=== PATIENT | male | born 1960 | race Caucasian/White ===

== ENCOUNTER 2018-01-11 15:57 | Observation (INO) ==
--- NOTE | 2018-01-11 21:30 | P.CON ---
History of Present Illness Service: Hand Surgery Consult date: 01/11/18 Reason for Consult: right thumb laceration Chief Complaint: right thumb laceration History of Present Illness: Patient is a 57 year old left hand dominant male presenting with complaints of laceration to the right thumb around 3 pm today. patient was using a boxing instructor and accidentally lacerated the right thumb. complains of inability to extend the thumb since injury. complains of pain over the region. denies any numbness. patient was seen at [facility], [place] and transferred to [facility] for surgery. Review of Systems All other systems reviewed negative except as stated in [facility] - History History Provided By: Patient - Medical History Medical History: Medical History (Last Reviewed 01/11/18 @ 21:24 by Ashish Covarrubias MD) Diabetes Hypercholesteremia Hypertension - Surgical History Surgical History: Surgical History (Last Reviewed 01/11/18 @ 21:24 by Ashish Covarrubias MD) History of heart artery stent History of kidney surgery - Tobacco History Second Hand Smoke Exposure: No Smoking Status: Never smoker - Alcohol History How Often Do You Have a Drink Containing Alcohol: Monthly or less - Substance Use History Substance History: No History of Abuse Medications and Allergies Allergies Allergy/AdvReac Type Severity Reaction Status Date / Time No Known Allergies Allergy Verified 01/11/18 16:13 Home Medications Medication Instructions Recorded Confirmed Type aspirin 81 mg PO DAILY 01/11/18 01/11/18 History atorvastatin 01/11/18 01/11/18 History clopidogrel [Plavix] 01/11/18 History lisinopril 20 mg PO DAILY 01/11/18 01/11/18 History metformin 1,000 mg PO BID 01/11/18 01/11/18 History Physical Exam Narrative: Examination of the right thumb: sutured laceration measuring about 2 cms over the dorsal aspect of the thumb proximal phalanx region drooping at the thumb IP joint noted no active extension of the IP joint noted intact flexion intact distal sensation and circulation - Constitutional no acute distress - Routine HEENT Exam Head: Present: normocephalic, atraumatic - Routine Respiratory Exam Comments: clear, equal on both sides - Routine Cardiovascular Exam Comments: S1 S2 normal, no murmurs Results - Imaging X-rays of the right thumb: soft tissue defect. no fractures. Assessment and Plan - Assessment (1) Laceration of extensor muscle, fascia and tendon of right thumb at wrist and hand level, initial encounter Code(s): S66.221A - Laceration of extensor muscle, fascia and tendon of right thumb at wrist and hand level, initial encounter Status: Acute - Plan 57 year old male with laceration extensor tendon zone II/III right thumb Plan: Take the patient emergently for exploration and repair of the extensor tendon right thumb. keep the patient npo. patient has been explained the risks and benefits of the procedure.
[2018-01-11] MEDS ORDERED: Sugammadex Inj 200 MG/2 ML Vial IV.PUSH ONE (21:52)
[2018-01-11] MEDS ORDERED: Lidocaine PF 1% Inj 5 ML Syringe OTHER ONE (22:00)
[2018-01-11] MEDS ORDERED: Neomycin/Polymyxin G.U. Irrigant 1 ML Ampul ONE (22:13)
[2018-01-11] MEDS ORDERED: Lidocaine 2% Inj 50 ML Vial ONE (22:14)
[2018-01-11] MEDS ORDERED: Bupivacaine PF 0.5% Inj 30 ML Vial ONE (22:14)
[2018-01-11] MEDS ORDERED: fentaNYL Citrate Inj 100 MCG/2 ML Ampul ONE (23:49)
--- NOTE | 2018-01-12 00:06 | P.OP ---
- Preoperative Diagnosis (1) Laceration of extensor muscle, fascia and tendon of right thumb at wrist and hand level, initial encounter - Postoperative Diagnosis (1) Laceration of extensor muscle, fascia and tendon of right thumb at wrist and hand level, initial encounter Date of procedure: 01/11/18 Procedure: exploration, wash, repair extensor pollicis longus tendon zoneII/III right thumb Anesthesia: GETA Surgeon: Ashish Covarrubias MD Estimated blood loss (mL): 5 Tourniquet time (min): 44 Pathology: none sent Operation and Findings: transverse laceration distal to MP joint measuring 2 cms complete laceration of the extensor pollicis longus tendon zone II/III right thumb
--- NOTE | 2018-01-12 00:40 | MP ---
cc: Ashish Covarrubias MD DATE OF OPERATION: 01/11/2018 PREOPERATIVE DIAGNOSIS: Laceration of the extensor pollicis longus tendon, right thumb. POSTOPERATIVE DIAGNOSIS: Laceration of the extensor pollicis longus tendon, zone 2/3, right thumb. PROCEDURE: Exploration, wash, and repair of extensor pollicis longus tendon, zone 2/3, right thumb. SURGEON: Ashish Covarrubias MD ANESTHESIA: General. ESTIMATED BLOOD LOSS: 5 mL TOURNIQUET TIME: 44 minutes at 250 mmHg. DISPOSITION: To PACU Stable. INDICATIONS: The patient is a 57-year-old male who presented to the ED with complaints of laceration to the right thumb yesterday evening. The patient was using a gill box fixer and accidentally lacerated the right thumb. On examination, he had a transverse fashion laceration just distal to the MP joint region of the thumb with drooping of the IP joint. The patient had no active extension of the thumb IP joint. He was consented for exploration and repair of extensor tendon, right thumb. The patient was explained the risks and benefits of the procedure. DESCRIPTION OF PROCEDURE: The patient was brought to the operating room, and under general anesthesia, the right upper extremity was sterilely prepped and draped. The previously placed sutures by the ER were removed. The limb was exsanguinated using Esmarch tourniquet. The tourniquet was inflated to 250 mmHg. The wound was explored. There was complete laceration of the extensor tendon. The decision was made to proceed with extension of the incision site both proximally and distally in a curvilinear fashion, incorporating the laceration, measuring about 1 cm at both proximal and distal aspect. Skin flaps were elevated exposing the laceration site. There was complete laceration of the extensor pollicis longus tendon just distal to the MP joint with laceration extending onto the lateral aspect of the extensor curiel. The patient also had laceration involving the capsule of the MP joint at the base of the proximal phalanx. A thorough wash was given using normal saline mixed with irrigant, about 1 L of solution was used. Initially, the capsule was approximated using 3-0 Vicryl in interrupted fashion. The extensor pollicis longus tendon was then approximated in a modified Tsuge fashion using 3-0 looped Supramid stitch with 4 strands crossing the repair site. The thumb was kept in hyperextension during the repair. This was then followed by repair of the epitenon using 5-0 Prolene in a continuous fashion. The thumb was put through a passive range of motion, and the repair site was holding well. The patient also had good tenodesis with wrist flexion and extension. Thorough wash was given. Bleeding points were cauterized with bipolar cautery. Skin flaps were then approximated using 4-0 nylon in a horizontal mattress interrupted fashion. Xeroform, bacitracin dressing applied. About 7-8 mL of local anesthesia containing mixture of 2% lidocaine and 0.5% Marcaine was injected across the laceration and incision site. Bulky hand dressing was applied which was held in place by [facility], and volar splint was applied, keeping the wrist in extension and IP joint in hyperextension, extending up to the tip of the thumb. He had good distal circulation at the end of the procedure. He was recovered and sent to recovery room in stable condition. The patient will be discharged home on p.o. antibiotics and pain medication. He will follow up with me in the office in 1 week's time. Ashish Covarrubias MD SE/baltazar , 12:11 AM , 12:20 AM
--- NOTE | 2018-01-12 17:36 | ECG ---
Date Performed: 01/11/2018 Time Performed: 21:16:12 PTAGE: 57 years EKG: Sinus rhythm LOW QRS VOLTAGE IN PRECORDIAL LEADS INCOMPLETE RIGHT BUNDLE BRANCH BLOCK INFERIOR MYOCARDIAL INFARCT ION , PROBABLY OLD ANTEROSEPTAL MYOCARDIAL INFARCTION , OF INDETERMINATE AGE ABNORMAL ECG NO PREVIOUS TRACING DOCTOR: Mattie Aadme Interpretating Date/Time 01/12/2018 17:34:52
== END 2018-01-12 01:30 | disposition home or self-care (01) ==
LOC: HPAC 15:57 → NEDDLT 15:57
PROVIDERS: ADMIT Surgery Surgery of the Hand; ATTEND Surgery Surgery of the Hand